=== PATIENT | male | born 1985 | race Caucasian/White ===

== ENCOUNTER 2017-02-21 01:05 | Emergency (ER) | payer SELFPAY ==
[~2017-02-21] VITALS: Ht 172.7 cm; Wt 72.6 kg
[2017-02-21 01:13] VITALS: BP 156/92
[2017-02-21] MEDS ORDERED: GLYB5TAB13 PO (01:25)
[2017-02-21] MEDS ORDERED: METF500T PO (01:25)
[2017-02-21] MEDS ORDERED: BACITRACIN OINT 500 UNITS/GM PKT TP ONE (01:35)
[2017-02-21 02:02] VITALS: BP 142/81
== END 2017-02-21 02:02 | disposition home or self-care (01) ==
LOC: MED 01:05
DX: S91.114A Laceration without foreign body of right lesser toe(s) without damage to nail, initial encounter (principal); E11.9 Type 2 diabetes mellitus without complications; W45.8XXA Other foreign body or object entering through skin, initial encounter; Y93.89 Activity, other specified; Y92.89 Other specified places as the place of occurrence of the external cause; Y99.8 Other external cause status
CPT/HCPCS: 82948; 90471; 90715; 99283